=== PATIENT | female | born 1965 | race Caucasian/White ===

== ENCOUNTER → 2016-12-15 | Day surgery (SDC) | payer BC ==
[2016-12-02 13:30] VITALS: Ht 156.2 cm; Wt 50.0 kg
--- NOTE | 2016-12-12 08:37 | HISTORY & PHYSICAL EXAMINATION ---
DATE OF ADMISSION: 12/15/2016 CHIEF COMPLAINT: Vulvar lesions. HISTORY OF PRESENT ILLNESS: The patient is a 51-year-old white female, 0, who has a long history of vulvar intraepithelial neoplasia. The patient has had several vulvar lesions removed in the past, the earliest having been in 2000. These included some lesions that were read as CALVIN 3. Most recently, the patient had lesions removed in the office on 06/25/2016. One of them was read as CALVIN 2. The patient returned for followup on November 14 and some additional lesions were noted. These were relatively small, but there are several present. The patient does not tolerate excision of these lesions in the office under local well. Of note, her last Pap smear was May 2016 and this was negative. ALLERGIES: THE PATIENT REPORTS ALLERGY TO AUGMENTIN. MEDICATIONS: The patient takes simvastatin 20 mg daily, lorazepam 1 mg twice a day as needed. Fluoxetine 40 mg daily. She also takes the supplements of vitamin D3, a multivitamin and calcium. In addition, she uses boric acid capsule vaginally. PAST SURGICAL HISTORY: The patient has had a breast biopsy in the past. In addition, a hemorrhoidectomy as well as a tooth extraction. ILLNESSES: The patient reports elevated cholesterol and hypertension; also anxiety. She has been noted to have gastroesophageal reflux. In addition, she has been treated for recurrent bacterial vaginosis. PAST MEDICAL HISTORY: She has had pancreatitis in the past. FAMILY HISTORY: Her mother had hypertension, skin cancer and hypercholesterolemia. Her father had coronary artery disease and diabetes as well as hypertension and cancer. A paternal aunt had breast cancer. SOCIAL HISTORY: The patient smokes 1 pack of cigarettes per day. She denies drinking alcohol. PHYSICAL EXAMINATION: VITAL SIGNS: Height 5 feet 1-1/2 inches, weight 110 pounds, blood pressure 138/86. HEENT: Grossly within normal limits. NECK: Supple without masses. CHEST: Her lungs are clear without wheezing. HEART: Regular rate and rhythm. No murmurs, gallops or rubs. ABDOMEN: Soft and nontender with no masses, no hepatosplenomegaly and no hernias. PELVIC: External genitalia, there are several smaller, slightly raised and/or pigmented lesions along the labia majora and outer labia minora. There is a slightly larger pigmented area at the base of the left labia minora. Vagina is normal in appearance. Cervix is normal and closed. Uterus within normal limit size, nontender, adnexa nontender with no masses palpable. EXTREMITIES: Some clubbing of the fingers noted. IMPRESSION: A 51-year-old white female with history of vulvar intraepithelial neoplasia. The patient has some new vulvar lesions. PLAN: Excision of vulvar lesions. The patient is aware of the risks of infection, bleeding, recurrence, risk of anesthesia and hospitalization. She prefers to proceed with treatment and does not wish no treatment. HUSSEIN
[~2016-12-15] VITALS: Ht 156.2 cm; Wt 50.0 kg
[~2016-12-15] MED LIST: ATROPINE SULFATE 0.1 MG/ML 5ML SYR IV PRN; ATV/1 PO; DEXAMETHASONE SOD INJ 4 MG/ML VIAL ONE; DIPH25CA65 PO; FENTANYL CITRATE INJ 50 MCG/1 ML 2 ML VIAL ONE; FLUO40CA8 PO; IBUPROFEN 200 MG TAB ONE; IBUPROFEN 600 MG TAB PO PRN; KETOROLAC TROMETHAMINE 30 MG/ML VIAL IV. PRN; KETOROLAC TROMETHAMINE 30 MG/ML VIAL ONE; LABETALOL HCL IV 5 MG/ML 20ML IV PRN; LACTATED RINGER'S 1000ML 1,000 ML IV SCH; LIDO 2%/EPINEPHRINE 1:100000 20 ML VIAL INFIL ONE; LIDOCAINE HCL 2% 2 ML VIAL (20MG/ML) ONE; MIDAZOLAM HCL 1 MG/ML 2ML VIAL ONE; ONDANSETRON INJ 2 MG/ML 2 ML VIAL IV PRN; ONDANSETRON INJ 2 MG/ML 2 ML VIAL ONE; PROMETHAZINE HCL INJ 12.5 MG in SODIUM CHLORIDE 0.9% 50ML 50 ML IV PRN; PROPOFOL IV EMULSION 10 MG/ML 20 ML VIAL IV ONE; SILVER NITR/POTASSIUM NITRATE APPLICATOR ONE; SIMV20TA2 PO; SODIUM CHLORIDE 0.9% 1000ML 1,000 ML IV SCH
--- NOTE | 2016-12-15 06:49 | History & Physical Bridge - SC ---
H&P Re-Evaluation Bridge Note: I have examined the patient, reviewed the History & Physical and in the interval since the performance of the History & Physical I have noted the following changes of clinical significance: No changes noted
--- NOTE | 2016-12-15 07:36 | [facility] Post Operative Brief Note ---
Immediate Operative Summary Operative Date December 15, 2016. Pre-Operative Diagnosis Vulvar Lesions Post-Operative Diagnosis Same Procedure(s) Performed Vulvar Lesion(s) Excision Surgeon Dr. Guillermo Route Sales Delivery Drivers Supervisor Surgeon(s) None Estimated Blood Loss 5 ml Findings See dictated note. Specimens A. Left Posterior Labia Majora Lesion B. Right Labia Majora Lesion C. Left Renee Anal Lesion D. Left Anterior Renee Anal Lesion Complication(s) None Disposition Recovery Room / PACU
--- NOTE | 2016-12-15 07:48 | Discharge Instructions-SurgCtr ---
Discharge Instructions Date of Service December 15, 2016. Visit Reason for Visit: Vulvar Lesions Discharge Discharge Diagnosis / Problem: S/P Excision of vulvar lesions Discharge Goals Goal(s): Diagnostic testing, Therapeutic intervention Activity Recommendations Activity Limitations: per Instructions/Follow-up section ACTIVITY RECOMMENDATIONS: * Sitz baths starting in 24 hours, at least twice daily for 10 days. * May shower as usual starting tomorrow. * No strenuous activity for 24-48 hours. SPECIAL CARE INSTRUCTIONS: Special Diet: * Mild nausea may occur in the immediate post-operative period. * Take clear liquids such as tea, cola or bouillon until all nausea has subsided; you may then resume your normal diet. Special Care: * You may have some slight oozing of blood from incisions for a few days. * Check your temperature twice a day for one week. If it goes above 100.4 degrees Fahrenheit (38.0 Celsius), notify your doctor. * Call your doctor's office for an appointment for 2-3 weeks after your surgery. [phone] Guillermo. * Call if you have increasing pain, redness or discharge from incisions. The stitches may fall off or absorb within 1-2 weeks. FOLLOW-UP VISIT: Call your doctor's office for an appointment as above. Anesthesia . Post Anesthesia Instructions: If you have had General Anesthesia or IV Sedation: * Do not drive today. * Resume driving when surgeon permits. * Do not make important decisions or sign legal documents today. * Call surgeon for: 1. Temperature elevations greater than 101 degrees F. 2. Uncontrollable pain. 3. Excessive bleeding. 4. Persistent nausea and vomiting. 5. Medication intolerance (nausea, vomiting or rash). * For nausea and vomiting use only clear liquids such as: tea, soda, bouillon until nausea subsides, then gradually increase diet as tolerated. * If you have any concerns or questions, call your surgeon's office. If physician is unavailable and it is an emergency, call 911 or go to the nearest emergency room. . Diet Recommendations Home Diet: resume previous diet Procedures Procedures Performed: Vulvar Lesion(s) Excision Pending Studies Studies pending at discharge: yes List of pending studies: We will call you with the pathology report in about one week. Medical Emergencies . Who to Call and When: Medical Emergencies: If at any time you feel your situation is an emergency, please call 911 immediately. . Non-Emergent Contact Non-Emergency issues call your: Agency Sales Development Associate Call Non-Emergent contact if: temperature is above 100.5 . . "Provider Documentation" section prepared by Carmen Guillermo. .
[2016-12-15] MEDS: FENTANYL CITRATE INJ 50 MCG/1 ML 2 ML VIAL IV PRN ×2 (07:56→08:06)
[2016-12-15 08:48] VITALS: TEMP 36.9
[2016-12-15 09:03] VITALS: BP 122/58; PULSE 66; O2SAT 97
--- NOTE | 2016-12-15 09:03 | Anesthesia Progress Nt - [facility] ---
Anesthesia Post Op Note Date & Time December 15, 2016 at 09:03 Vital Signs Vital Signs Past 12 Hours Date Time Temp Pulse Resp B/P Pulse Ox O2 Delivery O2 Flow Rate FiO2 12/15/16 08:48 36.9 68 16 138/80 96 Room Air 12/15/16 08:21 137/87 12/15/16 08:20 69 15 96 12/15/16 08:20 69 15 12/15/16 08:19 65 15 97 12/15/16 08:19 65 15 12/15/16 08:15 141/86 12/15/16 08:15 141/86 12/15/16 08:14 67 18 12/15/16 08:14 68 18 98 12/15/16 08:14 67 18 12/15/16 08:14 68 18 98 12/15/16 08:13 37.0 97 Room Air 12/15/16 08:10 141/88 12/15/16 08:10 141/88 12/15/16 08:09 66 13 99 12/15/16 08:09 67 13 12/15/16 08:09 67 13 12/15/16 08:09 66 13 99 12/15/16 08:06 133/86 12/15/16 08:06 133/86 12/15/16 08:04 69 19 12/15/16 08:04 69 19 12/15/16 08:04 70 19 98 12/15/16 08:04 70 19 98 12/15/16 08:00 138/83 12/15/16 08:00 138/83 12/15/16 07:59 69 13 100 12/15/16 07:59 68 13 12/15/16 07:59 69 13 100 12/15/16 07:59 68 13 12/15/16 07:56 133/83 12/15/16 07:56 133/83 12/15/16 07:54 76 21 12/15/16 07:54 76 21 12/15/16 07:54 77 21 100 12/15/16 07:54 77 21 100 12/15/16 07:51 137/87 12/15/16 07:51 137/87 12/15/16 07:49 72 16 12/15/16 07:49 72 16 100 12/15/16 07:49 72 16 100 12/15/16 07:49 72 16 12/15/16 07:45 118/78 12/15/16 07:45 118/78 12/15/16 07:44 67 12 100 12/15/16 07:44 67 12 12/15/16 07:44 67 12 12/15/16 07:44 67 12 100 12/15/16 07:40 105/71 12/15/16 07:40 105/71 12/15/16 07:39 36.6 68 16 113/75 100 Mask 7 12/15/16 07:39 69 12/15/16 07:39 69 113/75 100 12/15/16 07:39 69 12/15/16 07:39 69 113/75 100 12/15/16 06:26 36.7 77 16 125/82 96 Room Air Notes Mental Status: alert / awake / arousable, participated in evaluation Pt Amnestic to Procedure: Yes Nausea / Vomiting: adequately controlled Pain: adequately controlled Airway Patency, RR, SpO2: stable & adequate BP & HR: stable & adequate Hydration State: stable & adequate Anesthetic Complications: no major complications apparent
--- NOTE | 2016-12-15 09:10 | OPERATIVE REPORT ---
DATE OF OPERATION: 12/15/2016 PREOPERATIVE DIAGNOSIS: Vulvar lesions with history of vulvar intraepithelial neoplasia. POSTOPERATIVE DIAGNOSIS: Same. PROCEDURE: Excision of vulvar lesions. SURGEON: Carmen Guillermo MD ANESTHESIOLOGIST: Dr. Ruiz. DESCRIPTION OF PROCEDURE: The patient was taken to the operating room where general anesthesia was administered. After an adequate level was obtained, she was placed in dorsal lithotomy position. Vulva was prepped with Betadine solution. The patient's bladder was drained with a straight catheter. The patient was draped. The vulva was inspected closely. There were 3 darkly pigmented and slightly raised lesions along the outer aspect of the left labia minora extending onto the labia majora. These were excised completely with removal of a strip of skin just under 1 cm wide and approximately 2-2.5 cm in length. They were sent as left posterior labia majora lesion. This incision was closed with interrupted sutures of 4-0 chromic catgut. There were several very small lesions along the outer aspect of the right labia minora extending onto the labia majora. These were separately excised using scissors. They were sent together as one lesion. There was a raised perianal lesion on the patient's left and this was excised using the scalpel. Two sutures of 4-0 chromic catgut were used to close this incision. Finally, there was a smaller lesion anterior on the left in the perianal area and this was excised using scissors. This was sent as a separate specimen. At this point, the areas where scissors had been used to excise lesions were touched with silver nitrate stick to obtain hemostasis. The procedure was then ended. The patient tolerated the procedure well and was taken to the recovery room in good condition. I attest to the content of the Intraoperative Record and any orders documented therein. Any exceptions are noted below. MTDD
== END | disposition home or self-care (01) ==
LOC: X.SURG 06:13
PROVIDERS: ATTEND Obstetrics & Gynecology
DX: D07.1 Carcinoma in situ of vulva (principal); I10 Essential (primary) hypertension; E78.00 Pure hypercholesterolemia, unspecified; K21.9 Gastro-esophageal reflux disease without esophagitis; F17.210 Nicotine dependence, cigarettes, uncomplicated; K62.82 Dysplasia of anus; K62.0 Anal polyp

== ENCOUNTER → 2017-05-11 | Outpatient (CLI) | payer BC ==
[~2017-05-11] MED LIST changes: -ATROPINE SULFATE 0.1 MG/ML 5ML SYR IV PRN; -DEXAMETHASONE SOD INJ 4 MG/ML VIAL ONE; -FENTANYL CITRATE INJ 50 MCG/1 ML 2 ML VIAL ONE; -IBUPROFEN 200 MG TAB ONE; -IBUPROFEN 600 MG TAB PO PRN; -KETOROLAC TROMETHAMINE 30 MG/ML VIAL IV. PRN; -KETOROLAC TROMETHAMINE 30 MG/ML VIAL ONE; -LABETALOL HCL IV 5 MG/ML 20ML IV PRN; -LACTATED RINGER'S 1000ML 1,000 ML IV SCH; -LIDO 2%/EPINEPHRINE 1:100000 20 ML VIAL INFIL ONE; -LIDOCAINE HCL 2% 2 ML VIAL (20MG/ML) ONE; -MIDAZOLAM HCL 1 MG/ML 2ML VIAL ONE; -ONDANSETRON INJ 2 MG/ML 2 ML VIAL IV PRN; -ONDANSETRON INJ 2 MG/ML 2 ML VIAL ONE; -PROMETHAZINE HCL INJ 12.5 MG in SODIUM CHLORIDE 0.9% 50ML 50 ML IV PRN; -PROPOFOL IV EMULSION 10 MG/ML 20 ML VIAL IV ONE; -SILVER NITR/POTASSIUM NITRATE APPLICATOR ONE; -SODIUM CHLORIDE 0.9% 1000ML 1,000 ML IV SCH
--- NOTE | 2017-05-12 07:41 | MAMMOGRAPHY REPORT ---
BILATERAL DIGITAL SCREENING MAMMOGRAM TOMOSYNTHESIS WITH CAD: 05/11/2017 CLINICAL HISTORY: Routine screening. Patient has no complaints. TECHNIQUE: Breast tomosynthesis in addition to standard 2D mammography was performed. Current study was also evaluated with a Computer Aided Detection (CAD) system. COMPARISON: Comparison is made to exams dated: 05/07/2016 mammogram, 05/03/2015 mammogram, 05/02/2014 m ammogram, 04/01/2013 mammogram, 03/29/2012 mammogram, and 03/27/2011 mammogram - [facility] enter. BREAST COMPOSITION: The tissue of both breasts is heterogeneously dense, which may obscure small mas ses. FINDINGS: There are multiple bilateral stable groupings of punctate microcalcifications, most alesha us in the left upper outer quadrant. There is a stable china-shaped biopsy marker clip also in the lef t upper outer quadrant. Stable asymmetry in the medial left breast on the CC view. No new suspicious mass, architectural distortion or cluster of microcalcifications is seen. IMPRESSION: ACR BI-RADS CATEGORY 2: BENIGN There is no mammographic evidence of malignancy. A 1 year screening mammogram is recommended. The pa tient will receive written notification of the results. Approximately 10% of breast cancers are not detected with mammography. A negative mammographic report should not delay biopsy if a clinically suggestive mass is present. Rina Arora M.D. ay/:05/11/2017 14:26:20 Wood Drill Operator: Ramona Collado RT(R)(M), [facility] letter sent: Normal 1/2 BI-RADS Code: ACR BI-RADS Category 2: Benign
== END | disposition home or self-care (01) ==
LOC: C.MAMM 13:27
PROVIDERS: ATTEND Obstetrics & Gynecology
DX: Z12.31 Encounter for screening mammogram for malignant neoplasm of breast (principal)

== ENCOUNTER → 2017-05-20 | Outpatient (CLI) | payer BC | END | disposition home or self-care (01) | LOC: C.PAPS 14:02 | PROVIDERS: ATTEND Obstetrics & Gynecology | DX: Z01.419 Encounter for gynecological examination (general) (routine) without abnormal findings (principal); Z11.51 Encounter for screening for human papillomavirus (HPV) ==

== ENCOUNTER → 2017-08-07 | Outpatient (CLI) | payer OTHER ==
--- NOTE | 2017-08-07 12:38 | DIAGNOSTIC IMAGING REPORT ---
CHEST 2 VIEWS ROUTINE HISTORY: 52 years-old Female R05 [id number] acute cough COMPARISON: Chest radiograph 07/01/2016 and 06/21/2013 TECHNIQUE: PA and lateral views of the chest FINDINGS: The cardiomediastinal and hilar silhouettes are within normal limits. There is no pneumothorax, pleural effusion, focal airspace consolidation or overt pulmonary edema. The bones of the chest appear grossly intact. Multilevel endplate spurring of the spine. IMPRESSION: No acute process. The above report was generated using voice recognition software. It may contain grammatical, syntax or spelling errors. Electronically signed by: Onesimo Harris M.D. 08/07/2017 12:37 PM Dictated Date/Time: 08/07/2017 12:35 PM
== END | disposition home or self-care (01) ==
LOC: C.RADBC 12:21
PROVIDERS: ATTEND Nurse Practitioner Adult Health
DX: R05 Cough (principal)

== ENCOUNTER → 2017-08-10 | Outpatient (CLI) | payer OTHER ==
[2017-08-10 17:57] LABS: BASO % 0.2 %; BASO ABS # 0.02 K/uL (0-0.2); EOS % 0.5 %; EOS ABS # 0.05 K/uL (0-0.5); HEMATOCRIT 35.3 % (37-47); HEMOGLOBIN 12.4 g/dL (12.0-16.0); IG# 0.03 K/uL (0.00-0.02); LYMPH % 23.5 %; LYMPH ABS # 2.21 K/uL (1.2-3.4); MEAN CELL VOLUME 90.1 fL (80-100); MEAN CORPUSCULAR HEMOGLOBIN 31.6 pg (25-34); MEAN CORPUSCULAR HGB CONC 35.1 g/dl (32-36); MEAN PLATELET VOLUME 11.2 fL (7.4-10.4); MONO % 7.7 %; MONO ABS # 0.72 K/uL (0.11-0.59); NEUT % 67.8 %; NEUT ABS # 6.38 K/uL (1.4-6.5); PLATELET COUNT 307 K/uL (130-400); RED CELL DISTRIBUTION WIDTH CV 12.8 % (11.5-14.5); RED CELL DISTRIBUTION WIDTH SD 41.8 fL (36.4-46.3); WHITE BLOOD COUNT 9.41 K/uL (4.8-10.8)
[2017-08-10 18:50] LABS: INFLUENZA B ANTIGEN Neg for Influ B (NEG)
== END | disposition home or self-care (01) ==
LOC: C.LAB 16:48
PROVIDERS: ATTEND Nurse Practitioner Adult Health
DX: R50.9 Fever, unspecified (principal)

== ENCOUNTER 2025-01-20 07:21 | Observation (INO) ==
--- NOTE | 2024-12-21 12:39 | PAT Medication Instructions ---
Medication Instructions Date of Service December 21, 2024 Home Medications Medication Instructions Recorded atorvastatin 20 mg tablet 20 mg PO QPM #90 tabs 07/31/19 albuterol sulfate 90 mcg/actuation 2 puff inhalation Q6H PRN 08/18/22 aerosol inhaler Shortness Of Breath Or Wheezing #18 grams tiotropium bromide 2.5 2 puff inhalation QAM #3 Inhalers 01/22/24 mcg/actuation mist for inhalation (Spiriva Respimat) cholecalciferol (vitamin D3) 125 mcg (5,000 unit) tablet (Vitamin D3) 5,000 unit PO QAM diphenhydramine HCl 25 mg capsule (Benadryl) 25 mg PO HS multivitamin 1 tab PO QAM atorvastatin 20 mg tablet 20 mg PO QPM lorazepam 1 mg tablet 1 mg PO HS PRN albuterol sulfate 90 mcg/actuation aerosol inhaler 2 puff inhalation Q6H PRN Shortness Of Breath Or Wheezing denosumab 60 mg/mL subcutaneous syringe (Prolia) 60 mg subcut UD duloxetine 30 mg capsule,delayed release 60 mg PO QAM lisinopril 20 mg tablet 20 mg PO QAM Medical Marijuana 1 dose PO DIRECTED PRN Anxiety tiotropium bromide 2.5 mcg/actuation mist for inhalation (Spiriva Respimat) 2 puff inhalation QAM minoxidil 2.5 mg tablet 2.5 mg PO QAM ASK your prescriber and surgeon denosumab 60 mg/mL subcutaneous syringe (Prolia) 60 mg subcut UD minoxidil 2.5 mg tablet 2.5 mg PO QAM DO NOT take the morning of surgery cholecalciferol (vitamin D3) 125 mcg (5,000 unit) tablet (Vitamin D3) 5,000 unit PO QAM multivitamin 1 tab PO QAM lisinopril 20 mg tablet 20 mg PO QAM Medical Marijuana 1 dose PO DIRECTED PRN Anxiety Take morning of surgery With a small sip of water, OTHERWISE NOTHING TO EAT OR DRINK AFTER MIDNIGHT: albuterol sulfate 90 mcg/actuation aerosol inhaler 2 puff inhalation Q6H PRN Shortness Of Breath Or Wheezing (use if needed; please bring rescue inhaler with you to hospital day of surgery if possible) duloxetine 30 mg capsule,delayed release 60 mg PO QAM tiotropium bromide 2.5 mcg/actuation mist for inhalation (Spiriva Respimat) 2 puff inhalation QAM Take evening before surgery diphenhydramine HCl 25 mg capsule (Benadryl) 25 mg PO HS atorvastatin 20 mg tablet 20 mg PO QPM lorazepam 1 mg tablet 1 mg PO HS PRN (if needed) albuterol sulfate 90 mcg/actuation aerosol inhaler 2 puff inhalation Q6H PRN Shortness Of Breath Or Wheezing (if needed) Medical Marijuana 1 dose PO DIRECTED PRN Anxiety (if needed) Other Notes If you have any questions please call us at [phone] or [phone] or [phone] or [phone]
--- NOTE | 2024-12-30 13:07 | Anesthesiology Consultation ---
Date of Service December 30, 2024 Assessment & Plan (1) Encounter for pre-operative examination: - Infectious disease screening: Per assessment on 12/21/24- No known recent infectious disease contacts or current infectious disease symptoms. - Outpatient joint assessment: Pt currently scheduled for inpatient pathway. If surgeon requests review for outpatient joint pathway, patient is not recommended candidate for outpatient joint program from anesthesia standpoint based on available information. - Possible difficult intubation/Patient request: Patient requests caution with "flap" region in mouth- patient with history of mouth resection and partial glossectomy with neck dissection and reconstruction with radial forearm free fl ap- "sensitive area" due to previous surgery per patient. Patient had trach placed during 2021 oral surgery which was removed 1 week postoperatively without issue. - Awaiting upcoming cardiology office visit ([facility] cardio, appt ~01/03). Patient otherwise acceptable risk for surgery. Chart Review Chart Review: Patient seen in Pre Admission Testing Teaching & Discussion Pre-Anesthesia Teaching/Discussion Notes: Instructed NPO after midnight before surgery,except medications with 15 cc of water. Medication instructions provided according to the PAT guidelines. History Surgery Operation Date: 08/08/24 08:00 Proposed Procedures p Right Anterior Total Hip Arthroplasty - Elder Michelle DO Operation Date: 01/20/25 09:00 Proposed Procedures p Right Anterior Total Hip Arthroplasty - Elder Michelle DO Height/Weight Height: 5 ft 0.5 in Weight: 48.8 kg Allergies Allergy/AdvReac Type Severity Reaction Status Date / Time amoxicillin [From Augmentin] AdvReac Unknown thrush Verified 12/21/24 10:46 clavulanic acid AdvReac Unknown thrush Verified 12/21/24 10:46 [From Augmentin] Medications Home Medications Medication Instructions Recorded Confirmed Last Taken cholecalciferol (vitamin D3) 125 5,000 unit PO QAM 07/06/18 12/21/24 11/03/23 mcg (5,000 unit) tablet (Vitamin D3) diphenhydramine HCl 25 mg capsule 25 mg PO HS 07/06/18 12/21/24 11/05/23 (Benadryl) multivitamin 1 tab PO QAM 07/06/18 12/21/24 11/03/23 atorvastatin 20 mg tablet 20 mg PO QPM #90 tabs 12/29/19 05/21/25 04/04/24 lorazepam 1 mg tablet 1 mg PO HS PRN anxiety 08/11/22 12/21/24 11/05/23 albuterol sulfate 90 mcg/actuation 2 puff inhalation Q6H PRN 08/18/22 12/21/24 Unknown aerosol inhaler Shortness Of Breath Or Wheezing #18 grams denosumab 60 mg/mL subcutaneous 60 mg subcut UD 05/18/23 12/21/24 Unknown syringe (Prolia) duloxetine 30 mg capsule,delayed 60 mg PO QAM 05/18/23 12/21/24 11/06/23 release lisinopril 20 mg tablet 20 mg PO QAM 05/18/23 12/21/24 11/06/23 Medical Marijuana 1 dose PO DIRECTED PRN Anxiety 10/23/23 12/21/24 Unknown tiotropium bromide 2.5 2 puff inhalation QAM #3 Inhalers 01/22/24 12/21/24 Unknown mcg/actuation mist for inhalation (Spiriva Respimat) minoxidil 2.5 mg tablet 2.5 mg PO QAM 12/21/24 12/21/24 Unknown Past Medical History Medical History Anxiety Cardiac murmur Echo 05/2021: No significant valvular pathology COPD (chronic obstructive pulmonary disease) Depression Hemorrhoid History of colitis History of colon polyps History of lung cancer 2021 > Right middle lobectomy r/t malignant nodule 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 Recurrence 2022 > surgery Hx trach during oral surgery for reconstructive flap- since had trach closure* History of skin cancer HTN (hypertension) Hyperlipidemia Mood disorder Osteoarthritis Osteoporosis Overactive bladder Hx, "settled down" Splenic infarct Hx following colonoscopy 2017, "healed on own" Exercise / Class Metabolic Activity II 4-5 Yardwork/Stairs/Walk up hill (one FS: no CP, no SOB) Past Family History Family History Father Family history of diabetes mellitus Coronary heart disease Diabetes Hypertension Grandmother (Paternal) Family history of diabetes mellitus Family/Other Family hx of colon cancer Aunt Breast cancer Paternal Mother Dyslipidemia Hypertension Melanoma of skin Other No family history of adverse response to anesthesia No family history of bleeding disorder Denies family history of Ovarian cancer Colorectal cancer Past Surgical History Surgical History H/O breast biopsy ? Right History of colonoscopy History of lobectomy of lung Right middle lobectomy r/t malignant nodule History of root canal procedure (12/21/24) History of surgery Cancer removed from under tongue and small amount of tongue removed, but had "flap" reconstruction surgery to assist with swallowing [facility] 2021 F/U Dr. Baez/Dr. Cheng in [place] History of tooth extraction Tooth extraction 10/2024 History of tracheostomy During oral surgery for reconstructive flap- since had trach closure Hx of oral surgery Surgery for return oral cancer 2022, ca spot removed Right tonsil was removed also during this procedure due to hx oral cancer, "but the tonsil was not the cancerous area" Unique anesthetic considerations on preoperative anesthesia assessment Requests caution with "flap" in mouth under tongue on right side, sensitive area due to previous surgery Past Anesthesia History No Hx of Anesthesia Complications and No Family Hx of Anesthesia Complications History of PONV No Hx of PONV and No Hx of Motion Sickness Social History Smoking Status: Former smoker tobacco type: cigarettes Do You Dip or Chew Tobacco: No Smoking End Date: Quit Hx Alcohol Use: Yes (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 Physical Exam Vital Signs BP 148/76 P 97 TEMP 98.8 SP02 97%RA RESP 16 Physical Full cervical extension range of motion. Full TMJ range of motion. TMD 3 finger breaths Mallampati Score II (reconstructive flap under tongue) Dentition: intact, implants, caps (including upper front) Lungs: clear throughout to auscultation Cardiac: regular rate and rhythm, no murmurs noted Spine: normal Carotid arteries: negative bruit Extremities: no LE edema Trach scar Lab Results Anesthesia Preop Results Results Anesthesia Widget: WBC 5.67 K/ul (4.8-10.8) 12/30/24 Hgb 13.2 g/dl (12.0-16.0) 12/30/24 Hct 39.1 % (37.0-47.0) 12/30/24 Plt 294 K/uL (130-400) 12/30/24 Na 136 mmol/L (136-145) 12/30/24 K 4.5 mmol/L (3.5-5.1) 12/30/24 Cl 104 mmol/L (98-107) 12/30/24 CO2 28 mmol/L (21-32) 12/30/24 BUN 11 mg/dl (6-23) 12/30/24 Creat 0.72 mg/dl (0.6-1.2) 12/30/24 Glucose Level 94 mg/dl (70-99(Fasting)) 12/30/24 PT 10.2 Seconds (9.0-12.0) 12/30/24 PTT 30 Seconds (21-31) 12/30/24 INR 0.9 (0.9-1.1) 12/30/24 Blood Type O Positive 12/30/24 Antibody Screen NEGATIVE 12/30/24 Testing Electrocardiogram Date: 12/30/24 NSR at 91bpm. "Normal ECG" Chest X-Ray Date: 12/30/24 IMPRESSION: 1. No active cardiopulmonary disease. 2. Mild thoracic spondylosis. Echocardiogram Date: 05/03/21 EF 60%. No RWMA. No LVH. No significant valvular disease. Hypermobile atrial septum. Borderline dilation of ascending aorta (3.7cm).
--- NOTE | 2025-01-18 12:46 | History & Physical Report ---
Date of Service January 18, 2025 Assessment & Plan (1) Osteoarthritis of right hip: We will proceed with a right anterior total hip arthroplasty. Postoperatively, she will be started on aspirin for DVT prophylaxis and kept overnight hospital for postop medical management. She plans to use [email or web address] at discharge. History of Present Illness Chief Complaint: Osteoarthritis of the right hip. Primary Care Provider: Keira PrietoDO Davalos is a pleasant 59-year-old female who has been dealing with chronic increasing right hip and groin pain. X-rays have been diagnostic for advanced arthritis of the right hip. She has received some injections of the right hip with a little bit of relief, but the injections are not providing a long-term solution. After failing conservative treatment, she has elected proceed with a right total hip arthroplasty. Allergies Allergy/AdvReac Type Severity Reaction Status Date / Time amoxicillin [From Augmentin] AdvReac Unknown thrush Verified 12/21/24 10:46 clavulanic acid AdvReac Unknown thrush Verified 12/21/24 10:46 [From Augmentin] Home Medications Medication Instructions Recorded Confirmed Type cholecalciferol (vitamin D3) 125 5,000 unit PO QAM 07/06/18 12/21/24 History mcg (5,000 unit) tablet (Vitamin D3) diphenhydramine HCl 25 mg capsule 25 mg PO HS 07/06/18 12/21/24 History (Benadryl) multivitamin 1 tab PO QAM 07/06/18 12/21/24 History atorvastatin 20 mg tablet 20 mg PO QPM #90 tabs 07/31/19 12/21/24 Rx lorazepam 1 mg tablet 1 mg PO HS PRN anxiety 08/11/22 12/21/24 History albuterol sulfate 90 mcg/actuation 2 puff inhalation Q6H PRN 08/18/22 12/21/24 Rx aerosol inhaler Shortness Of Breath Or Wheezing #18 grams denosumab 60 mg/mL subcutaneous 60 mg subcut UD 05/18/23 12/21/24 History syringe (Prolia) duloxetine 30 mg capsule,delayed 60 mg PO QAM 05/18/23 12/21/24 History release lisinopril 20 mg tablet 20 mg PO QAM 05/18/23 12/21/24 History Medical Marijuana 1 dose PO DIRECTED PRN Anxiety 10/23/23 12/21/24 History tiotropium bromide 2.5 2 puff inhalation QAM #3 Inhalers 01/22/24 12/21/24 Rx mcg/actuation mist for inhalation (Spiriva Respimat) minoxidil 2.5 mg tablet 2.5 mg PO QAM 12/21/24 12/21/24 History Past Med/Surg History Problem List Osteoarthritis of right hip Heterogeneously dense tissue of both breasts on mammography Family history of malignant neoplasm of breast PATERNAL AUNT Squamous cell carcinoma of oral cavity Oral mucosal lesion Encounter for pre-operative examination Dermatochalasis of both upper eyelids 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 Recommended 3 month follow up (10/19) which was unchanged. Repeat (04/21) 10mm. Discussed at long nodule case conference. Recommendation to repeat 10/20 Overactive bladder 06/20: Presumed overactive bladder, initiated on solifenacin for urinary frequency symptoms Vulvar intraepithelial neoplasia CALVIN 2 (06/18) and CALVIN 3 (12/17) lesions along with condylomata. Followed by [employer] [facility] Generalized osteoarthritis (Chronic) Primarily of back. XR cervical spine (03/16) demonstrating mild degenerative changes. Internal hemorrhoids Demonstrated on diagnostic colonoscopy due to rectal bleeding now s/p band ligation 08/19. Maintaining high fiber diet Tobacco use disorder (Chronic) Single nicotine replacement therapy at this time, continued smoking about 0.5ppd Alcohol use disorder, moderate, in sustained remission (Chronic) History of alcohol abuse with alcohol withdrawal syndrome Mood disorder (Chronic) Currently treated with fluoxetine + duloxetine + lorazepam Psychiatric follow up established (06/20) Hyperlipemia (Chronic) Primary prevention, taking moderate intensity stating (atorvastatin 40mg daily). Medical History Osteoporosis History of colon polyps Hemorrhoid Overactive bladder Hx, "settled down" Splenic infarct Hx following colonoscopy 2017, "healed on own" 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 Recurrence 2022 > surgery Hx trach during oral surgery for reconstructive flap- since had trach closure* History of lung cancer 2021 > Right middle lobectomy r/t malignant nodule History of skin cancer HTN (hypertension) Mood disorder COPD (chronic obstructive pulmonary disease) History of colitis Cardiac murmur Echo 05/2021: No significant valvular pathology Osteoarthritis Depression Anxiety Hyperlipidemia Surgical History Unique anesthetic considerations on preoperative anesthesia assessment Requests caution with "flap" in mouth under tongue on right side, sensitive area due to previous surgery History of root canal procedure (12/21/24) History of tooth extraction Tooth extraction 10/2024 Hx of oral surgery Surgery for return oral cancer 2022, ca spot removed Right tonsil was removed also during this procedure due to hx oral cancer, "but the tonsil was not the cancerous area" History of tracheostomy During oral surgery for reconstructive flap- since had trach closure History of surgery Cancer removed from under tongue and small amount of tongue removed, but had "flap" reconstruction surgery to assist with swallowing [facility] [place] 2021 F/U Dr. Baez/Dr. Cheng in [place] History of lobectomy of lung Right middle lobectomy r/t malignant nodule H/O breast biopsy ? Right History of colonoscopy Family History Father Family history of diabetes mellitus Coronary heart disease Diabetes Hypertension Grandmother (Paternal) Family history of diabetes mellitus Family/Other Family hx of colon cancer Aunt Breast cancer Paternal Mother Dyslipidemia Hypertension Melanoma of skin Other No family history of adverse response to anesthesia No family history of bleeding disorder Denies family history of Ovarian cancer Colorectal cancer Social History Smoking Status: Former smoker Tobacco Type: Cigarettes Age Started Using Tobacco: 16; Age Quit Using Tobacco: 55; Second Hand Exposure: No; Do You Dip or Chew Tobacco: No; Hx Alcohol Use: Yes (pt reports recovering aloholic , quit 2016) Preferred Language: [place] Communication Ability: Effective Director Of Social Services Required: No Beliefs That Will Affect Care: None Current Living Situation: Alone Feels Safe at Home: Yes Assistive Devices: Other Review of Systems All systems reviewed & are unremarkable except as noted in HPI & below. Physical Exam On physical exam of the right hip, she has decreased range of motion. She has pain with forced internal/external rotation. All of her pain is located in the groin.. Constitutional WD/WN, vitals as above Eyes PERRL, conjunctivae normal, anicteric sclerae ENMT external ear and nose normal, oropharynx normal Neck trachea midline, no thyromegaly Respiratory normal respiratory effort Cardiovascular RRR, no murmur, no edema Gastrointestinal (Abdomen) normal bowel sounds, soft, nontender, no hepatosplenomegaly Psychiatric A+Ox3, euthymic affect Results & Data Results & Data Laboratory Results . Diagnostic Findings X-rays of the right hip show advanced osteoarthritis with joint space narrowing, osteophyte formation, and [id number] articulation.. PG Care Time/CCT Total # of Minutes Spent Total Time Spent with Patient: Total time spent is greater than 50% in coordination of care (as documented) at patient's floor/unit and/or counseling patient: Coding Level of Care Code None Diagnoses Osteoarthritis of right hip M16.11
[~2025-01-20 07:21] MED LIST changes: -ATV/1 PO; -DIPH25CA65 PO; -FLUO40CA8 PO; +ROPIVACAINE 0.5% 5 MG/ML 30 ML VIAL ONE; -SIMV20TA2 PO
[2025-01-20] MEDS ORDERED: ONDANSETRON INJ 2 MG/ML 2 ML VIAL ONE (07:55)
[2025-01-20] MEDS ORDERED: PROPOFOL IV EMULSION 10 MG/ML 20 ML VIAL IV ONE (07:55)
[2025-01-20] MEDS ORDERED: MIDAZOLAM HCL 1 MG/ML 2ML VIAL ONE (07:55)
--- NOTE | 2025-01-20 07:56 | History & Physical Bridge Note ---
Date of Service January 20, 2025 History & Physical Bridge Note I have examined the patient, reviewed the History & Physical and in the interval since the performance of the History & Physical I have noted the following changes of clinical significance: no changes noted
[2025-01-20] MEDS: dexAMETHasone**PF** 10 MG/ML VIAL IV SCH (08:00)
[2025-01-20] MEDS: ACETAMINOPHEN 500 MG TAB PO SCH ×2 (08:00→14:12)
[2025-01-20] MEDS: LR 60ML/HR IV SCH (08:00)
[2025-01-20] MEDS: FAMOTIDINE 20 MG TAB PO SCH (08:00)
[2025-01-20] MEDS: LR 500ML BOLUS, THEN 15ML/HR IV SCH (08:00)
[2025-01-20] MEDS: GABAPENTIN 600 MG DOSE PO SCH (08:01)
[2025-01-20] MEDS: TRANEXAMIC ACID 1,000 MG **IV Pre-op IV SCH (08:38)
[2025-01-20] MEDS ORDERED: KETOROLAC 30 MG/ML VIAL IV PRN (08:48)
[2025-01-20] MEDS ORDERED: ePHEDrine sulfate 50 MG/ML AMP IV PRN (08:48)
[2025-01-20] MEDS ORDERED: ATROPINE SULFATE 0.1 MG/ML 10ML SYR IV PRN (08:48)
[2025-01-20] MEDS ORDERED: HYDROmorphone INJ 1 MG/ML SYRINGE IV PRN (08:48)
[2025-01-20] MEDS ORDERED: ONDANSETRON INJ 2 MG/ML 2 ML VIAL IV PRN ×2 (08:48→13:47)
[2025-01-20] MEDS: ceFAZolin 2000MG 2,000 MG/15 ML SYR IV SCH ×2 (09:00→17:28)
[2025-01-20] MEDS ORDERED: fentaNYL citrate PF 100 MCG/2 ML VIAL ONE (09:24)
[2025-01-20] MEDS: ROPIV 0.5% 246mg, Ketorolac 30mg, EPINEPHrine 0.5mg in NSS INFIL SCH (09:25)
[2025-01-20] MEDS: ORTHO JOINT ANESTHETIC ONE (09:25)
[2025-01-20] MEDS: TRANEXAMIC ACID 1,000 MG **IV Intra-op IV SCH (09:50)
--- NOTE | 2025-01-20 09:56 | Operative Report ---
PG Post Operative Report Pre & Post Diagnosis Operation Date: 01/20/25 09:00 Pre-Op Diagnosis: Right Hip Osteoarthritis Post-Op Diagnosis: Right Hip Osteoarthritis I identified the patient and participated in the time-out.: Yes Procedure Operation Date: 01/20/25 09:00 Actual Procedures p Right Anterior Total Hip Arthroplasty(Right) - Elder Michelle DO Surgeon Elder Michelle DO Care Director Rn Jd Lion PA-C Estimated Blood Loss 150 Findings Consistent with Post-Op Diagnosis Specimens Right femoral head Description of Procedure Implants used I used a [employer] total hip arthroplasty system with a size 4 standard offset Z1 stem, a 46 mm G7 cup with a 25mm screw, an E1 polyethylene liner, a 32 mm ceramic head with a 0 neck. Susannah arrived at the hospital for the above procedure. She was seen in the preoperative holding area and the operative extremity was identified and signed. She was given a spinal anesthetic, a preoperative antibiotic, and TXA. She was then taken back to the operating room and laid on the table in the supine position. She was given basic sedation. The operative leg was secured to a Puristst leg positioner. The hip was then prepped and draped in sterile fashion. A timeout was done and the patient and the operative extremity was properly identified. An anterior approach was used. Dissection was taken down through the fascia and the tensor muscle belly was retracted laterally and the rectus was retracted medially. The circumflex vessels were identified and ligated. The capsule was then incised and tagged for later repair. The femoral neck was then cut and the femoral head was removed. The acetabulum was exposed. Time was spent doing a complete circumferential labral release. Sequential reaming of the acetabulum up to a size 45 reamer was done. Final reamings were done under fluoroscopy to ensure appropriate version. A Biomet 46 mm G7 cup was then impacted into place. A single 25 mm screw was placed. The E1 polyethylene liner was then snapped into place. Surrounding soft tissues were then injected with 100 cc of an orthopedic pain control cocktail. The proximal femur was then exposed. Sequential broaching up to a size 4 broach was done. Off that broach a size 32 head with a 0 neck was trialed. The hip was reduced and fluoroscopic images showed anatomic alignment of the implants in acceptable length. The broach was removed. The final size 4 standard offset Z1 stem was then impacted into place. A ceramic 32 mm head with a 0 neck was then impacted onto the stem and the hip was reduced. Final fluoroscopic images showed anatomic alignment of the hip. The capsule was then closed with #1 Vicryl suture. A dilute betadyne lavage was then done for 3 minutes. The joint was then irrigated with normal saline solution. The fascia was closed with #1 PDS suture. Skin was closed with 2-0 Vicryl, eric, and a Silverlon dressing. She was then transferred to a hospital bed and taken to the post anesthesia care unit in stable condition. She tolerated the procedure well. Jd Lion PA-C, was present for the entire procedure. He was critical for patient positioning, prepping, draping, retraction exposure, wound closure and application of sterile dressing. I attest to the content of the Intraoperative Record and any orders documented therein. Any exceptions are noted below.
--- NOTE | 2025-01-20 10:48 | Fluoroscopy Report ---
FL hip RT 1V CLINICAL HISTORY: RIGHT ANTERIOR TEODORO COMPARISON STUDY: 12/07/2022 FLUOROSCOPY TIME: 13 seconds FLUOROSCOPY IMAGES: 1 EXPOSURE DOSE: 1 mGy FINDINGS: Fluoroscopy was provided for right hip prosthesis. IMPRESSION: Intraoperative fluoroscopy. ACT 112: Negative or not required by law. Electronically signed by: Jose Walsh M.D. 01/20/2025 10:47 AM
--- NOTE | 2025-01-20 10:51 | XRay Report ---
XR hip 1V RT w pelvis CLINICAL HISTORY: IN PACU - Post Surgical COMPARISON: 12/03/2022 FINDINGS: Right hip prosthesis shows no hardware complication. There is expected soft tissue gas. IMPRESSION: Unremarkable postoperative exam. ACT 112: Negative or not required by law. Electronically signed by: Jose Walsh M.D. 01/20/2025 10:50 AM
--- NOTE | 2025-01-20 12:37 | Anesthesiology Progress Note ---
Date of Service January 20, 2025 Anesthesia Post Procedure Vital Signs Vital Signs: Temp Pulse Resp BP Pulse Ox O2 Del Method O2 Flow Rate 01/20/25 12:30 37.1 C 79 19 143/88 H 99 Room Air 01/20/25 12:20 77 12 125/84 99 Room Air 01/20/25 12:10 76 13 125/82 99 Room Air 01/20/25 12:00 79 14 129/80 99 Room Air 01/20/25 11:50 75 20 139/81 99 Room Air 01/20/25 11:40 74 14 140/80 99 Room Air 01/20/25 11:30 72 20 141/79 H 99 Room Air 01/20/25 11:20 72 12 139/79 97 Room Air 01/20/25 11:10 70 14 143/84 H 98 Room Air 01/20/25 11:00 71 14 148/87 H 99 Room Air 01/20/25 10:50 68 12 139/78 100 Oxymask 2 01/20/25 10:40 70 20 150/83 H 100 Oxymask 4 01/20/25 10:30 72 14 147/80 H 100 Oxymask 6 01/20/25 10:23 36 C L 77 14 148/83 H 99 Oxymask 6 01/20/25 08:05 36.4 C L 80 18 148/93 H 99 Room Air Pain Intensity Right Hip: Pain Intensity: 8 Transfer of Care Handoff Completed per policy Notes Mental Status: alert / awake / arousable Patient Amnestic to Procedure: Yes Nausea / Vomiting: adequately controlled Pain: adequately controlled Airway Patency, RR, SpO2: stable & adequate BP & HR: stable & adequate Hydration State: stable & adequate Neuraxial Anesthesia: was administered and sensory block is resolving Anesthetic Complications: no major complications apparent
[2025-01-20] MEDS ORDERED: ALBUTEROL HFA 8 GM INHALER INH PRN (13:47)
[2025-01-20] MEDS ORDERED: bisacodyL 10 MG SUPP PR PRN (13:47)
[2025-01-20] MEDS ORDERED: METOCLOPRAMIDE HCL INJ 5 MG/ML 2 ML VIAL IV PRN (13:47)
[2025-01-20] MEDS ORDERED: NON-FORMULARY MEDICATION (Denosumab [Prolia] 60 mg/mL Syringe) SQ SCH (13:47)
[2025-01-20] MEDS ORDERED: NON-FORMULARY MEDICATION (Medical Marijuana 1 EA) PO PRN (13:47)
[2025-01-20] MEDS ORDERED: LORazepam 1 MG TAB PO PRN (13:47)
[2025-01-20] MEDS ORDERED: oxyCODONE HCL IR 5 MG TAB (IMMEDIATE RELEASE) PO PRN (13:47)
[2025-01-20] MEDS ORDERED: HYDROmorphone INJ 0.5 MG/0.5 ML SYR IV PRN (13:47)
[2025-01-20] MEDS ORDERED: NALOXONE HCL 0.4 MG/1 ML VIAL/CARP IV PRN (13:47)
[2025-01-20] MEDS ORDERED: diphenhydrAMINE Capsule 25 MG CAP PO PRN (13:47)
[2025-01-20] MEDS ORDERED: MAGNESIUM HYDROXIDE SUSP 30 ML UDC PO PRN (13:47)
[2025-01-20] MEDS: SODIUM CHLORIDE 0.9% 1,000 ML IV SCH (14:04)
[2025-01-20] MEDS: KETOROLAC TROMETHAMINE 15 MG/ML VIAL IV SCH (14:12)
[2025-01-20] MEDS: diphenhydrAMINE Capsule 25 MG CAP PO SCH (20:16)
[2025-01-20] MEDS: DOCUSATE SODIUM 100 MG CAP PO SCH (20:16)
[2025-01-20] MEDS: SENNA 8.6 MG TAB PO SCH (20:16)
[2025-01-20] MEDS: ASPIRIN 81 MG ECTAB PO SCH (20:18)
[2025-01-20] MEDS: ATORVASTATIN 40 MG TAB PO SCH (20:19)
[2025-01-20] MEDS ORDERED: ATORVASTATIN 20 MG TAB PO SCH (21:00)
[2025-01-21 07:37] VITALS: BP 150/80; PULSE 78; TEMP 98.4; O2SAT 99
[2025-01-21 08:02] VITALS: RESP 17
[2025-01-21] MEDS: CHOLECALCIFEROL 125 MCG (5,000 UNITS) TAB PO SCH (08:54)
[2025-01-21] MEDS: lisinopril 20 MG TAB PO SCH (08:54)
[2025-01-21] MEDS: minoxidiL 2.5 MG TAB PO SCH (08:54)
[2025-01-21] MEDS: DULoxetine HCL 60 MG CAP PO SCH (08:54)
[2025-01-21] MEDS ORDERED: NON-FORMULARY MEDICATION (Multivitamin Tablet) PO SCH (09:00)
[2025-01-21] MEDS: MULTIVITAMIN TAB PO SCH (10:11)
[2025-01-21] MEDS: UMECLIDINIUM BROMIDE 62.5MCG/BLISTER 7 PUFFS/INHALER INH SCH (10:17)
--- NOTE | 2025-01-21 10:41 | Orthopedic Progress Note ---
Date of Service January 21, 2025 Assessment & Plan (1) Status post right hip replacement: Overall she is doing very well. She is not having much pain in the right hip. She will be seen by physical therapy today for ambulation and range of motion exercises. She is on aspirin for DVT prophylaxis. She can be discharged to home later today. She will follow-up orthopedics in 2 weeks. Tejinder Davalos was seen and examined at bedside this morning. Overall she is doing fairly well. She is not having much pain in the right hip. She has been up and ambulating to the bathroom. She has no complaints.. Review of Systems All systems reviewed & are unremarkable except as noted in HPI & below. Physical Exam On physical exam of the right hip, the dressing is clean and dry. Her leg is out full extension. She has active dorsiflexion plantarflexion of her right ankle.. Results & Data Results & Data Laboratory Results . Diagnostic Findings Postoperative x-rays of the right hip show the prosthesis to be in anatomic alignment without any evidence of fracture, dislocation, or loosening.. PG Care Time/CCT Total # of Minutes Spent Total Time Spent with Patient: Total time spent is greater than 50% in coordination of care (as documented) at patient's floor/unit and/or counseling patient: Coding Level of Care Code 07377 Post Operative Follow-Up Diagnoses Status post right hip replacement Z96.641
[2025-01-21] MEDS: dexAMETHasone 4 MG TAB PO SCH (10:52)
== END 2025-01-21 11:46 | disposition home or self-care (01) ==
LOC: 3N 07:21 → ASU 07:21